=== PATIENT | female | born 1995 | race Caucasian/White ===

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

== ENCOUNTER 2020-06-20 19:04 | Emergency (ER) | payer OTHER ==
[~2020-06-20 19:04] MED LIST: BENTYL 10MG CAP10 MG PO; IBUPROFEN600 MG PO; INDOCIN 50 MG C50 MG PO; ZOFRAN ODT 4 MG4 MG PO; ZOFRAN4 MG PO
[2020-06-20 20:26] LABS: HEMOGLOBIN 12.4 gm/dl (12.3-15.3); RED BLOOD COUNT 4.49 M/UL (4.00-5.10)
[2020-06-20 20:43] LABS: BUN/CREATININE RATIO 9 (0-10)
[2020-06-20] MEDS ORDERED: CRINONE1.125 G1 VG (22:17)
== END 2020-06-20 22:20 | disposition home or self-care (01) ==
LOC: ER1 19:04
PROVIDERS: Family Medicine
DX: O99.891 Other specified diseases and conditions complicating pregnancy (principal); R87.1 Abnormal level of hormones in specimens from female genital organs; O99.111 Other diseases of the blood and blood-forming organs and certain disorders involving the immune mechanism complicating pregnancy, first trimester; D68.9 Coagulation defect, unspecified; Z90.49 Acquired absence of other specified parts of digestive tract; Z87.42 Personal history of other diseases of the female genital tract; Z3A.00 Weeks of gestation of pregnancy not specified
CPT/HCPCS: 80053; 81001; 84702; 84703; 85025; 99284

== ENCOUNTER → 2020-06-27 | Outpatient (CLI) | payer OTHER ==
[~2020-06-27] MED LIST changes: +CRINONE1.125 G1 VG; +OMNICEF 300 MG300 MG PO
== END ==
LOC: LAB 17:54
DX: Z32.00 Encounter for pregnancy test, result unknown (principal)
CPT/HCPCS: 84702

== ENCOUNTER 2020-07-04 13:51 | Emergency (ER) | payer OTHER ==
[~2020-07-04 13:51] MED LIST changes: -OMNICEF 300 MG300 MG PO
[2020-07-04 18:01] LABS: HEMOGLOBIN 12.8 gm/dl (12.3-15.3); RED BLOOD COUNT 4.51 M/UL (4.00-5.10); WHITE BLOOD COUNT 9.4 K/UL (4.5-11.0)
[2020-07-04 18:26] LABS: BUN/CREATININE RATIO 12 (0-10)
[2020-07-04] MEDS ORDERED: OMNICEF 300 MG300 MG PO (22:57)
== END 2020-07-04 23:00 | disposition home or self-care (01) ==
LOC: ER1 13:51
PROVIDERS: Physician Assistant Medical
DX: O23.41 Unspecified infection of urinary tract in pregnancy, first trimester (principal); Z88.5 Allergy status to narcotic agent; Z3A.01 Less than 8 weeks gestation of pregnancy
CPT/HCPCS: 76817; 80053; 81001; 83690; 85025; 87086; 96365; 96375; 99284; J0696; J2405

== ENCOUNTER 2020-07-25 12:33 | Emergency (ER) | payer OTHER ==
[~2020-07-25 12:33] MED LIST changes: +OMNICEF 300 MG300 MG PO
[2020-07-25 14:15] LABS: HEMOGLOBIN 14.1 gm/dl (12.3-15.3); RED BLOOD COUNT 4.86 M/UL (4.00-5.10)
[2020-07-25 14:32] LABS: BUN/CREATININE RATIO 11 (0-10)
== END 2020-07-25 16:15 | disposition home or self-care (01) ==
LOC: ER1 12:33
PROVIDERS: Physician Assistant
DX: O20.0 Threatened abortion (principal); Z3A.09 9 weeks gestation of pregnancy
CPT/HCPCS: 76815; 80053; 81001; 84702; 85025; 86900; 86901; 99284

== ENCOUNTER 2021-03-03 21:44 | Emergency (ER) | payer OTHER ==
[2021-03-03 23:36] LABS: HEMOGLOBIN 9.5 gm/dl (12.3-15.3); RED BLOOD COUNT 3.46 M/UL (4.00-5.10); WHITE BLOOD COUNT 10.6 K/UL (4.5-11.0)
[2021-03-03 23:53] LABS: BUN/CREATININE RATIO 22 (0-10)
== END 2021-03-04 01:00 | disposition home or self-care (01) ==
LOC: ER1 21:44
PROVIDERS: Physician Assistant
DX: R51.9 Headache, unspecified (principal); R60.0 Localized edema; R03.0 Elevated blood-pressure reading, without diagnosis of hypertension; Z88.5 Allergy status to narcotic agent
CPT/HCPCS: 80053; 81001; 83735; 85025; 87086; 99284